=== PATIENT | male | born 1990 | race Two or more races ===

== ENCOUNTER 2018-09-14 06:35 | Emergency (ER) | payer MEDICAID, OTHER ==
[~2018-09-14] VITALS: Ht 172.7 cm; Wt 76.2 kg
[~2018-09-14 06:35] MED LIST: CHEMO
[2018-09-14 07:25] VITALS: BP 141/88
[2018-09-14] MEDS ORDERED: LIDOCAINE 1% HCL (LOCAL ANESTH.) INJ 20ML MDV IJ ONE (08:45)
== END 2018-09-14 08:49 | disposition home or self-care (01) ==
LOC: ER 06:35
DX: S01.81XA Laceration without foreign body of other part of head, initial encounter (principal); S51.011A Laceration without foreign body of right elbow, initial encounter; W18.00XA Striking against unspecified object with subsequent fall, initial encounter; Y93.89 Activity, other specified; Y92.89 Other specified places as the place of occurrence of the external cause; Y99.8 Other external cause status
CPT/HCPCS: 12001; 12013; 99284; J2001

== ENCOUNTER 2021-12-27 17:13 | Emergency (ER) | payer MEDICAID ==
[~2021-12-27] VITALS: Ht 180.3 cm; Wt 86.2 kg
[2021-12-27 17:25] VITALS: BP 128/72
== END 2021-12-27 19:14 | disposition home or self-care (01) ==
LOC: ER 17:13
DX: M54.50 Low back pain, unspecified (principal); M79.18 Myalgia, other site; V43.92XA Unspecified car occupant injured in collision with other type car in traffic accident, initial encounter; Y93.89 Activity, other specified; Y92.89 Other specified places as the place of occurrence of the external cause; Y99.8 Other external cause status

== ENCOUNTER 2024-02-24 11:00 | Emergency (ER) | payer MEDICAID ==
[~2024-02-24] VITALS: Ht 177.8 cm; Wt 95.4 kg
[2024-02-24 11:10] VITALS: PULSE 119; RESP 21; TEMP 98.1; O2SAT 97
[2024-02-24 11:51] LABS: Basophils # (auto) 0.1 10 ^3/uL (0-0.2); Basophils % (auto) 0.8 % (0.0-2.0); Eosinophils # (auto) 0 10 ^3/uL (0-0.8); Eosinophils % (auto) 0.4 % (0.0-7.0); Hematocrit 35.6 % (41.0-53.0); Hemoglobin 12.3 g/dL (13.5-17.5); Lymphocytes # (auto) 2.3 10 ^3/uL (0.4-5.4); Lymphocytes % (auto) 23.7 % (10.0-50.0); Mean Corpuscular Hemoglobin 33.3 pg (28.0-32.0); Mean Corpuscular Hgb Conc. 34.5 g/dL (32.0-36.0); Mean Corpuscular Volume 96.7 fL (80.0-100.0); Monocytes # (auto) 0.7 10 ^3/uL (0-1.3); Neutrophils # (auto) 6.6 10 ^3/uL (1.6-8.6); Neutrophils % (auto) 68.1 % (37.0-80.0); Platelet Count (auto) 345 10^3/uL (140-450); Red Blood Cells 3.68 10^6/uL (4.5-5.90); Red Cell Distribution Width 14.1 % (11.8-14.3); White Blood Cell 9.6 10^3/uL (4.4-10.8)
[2024-02-24] MEDS: SODIUM CHLORIDE 0.9% 1,000 ML IV ONE (12:12)
[2024-02-24 12:27] LABS: Chloride 107 mmol/L (98-107); Potassium 3.7 mmol/L (3.5-5.1); Sodium 141 mmol/L (136-145)
[2024-02-24 12:28] LABS: Anion Gap 9 (5-15); Carbon Dioxide 25 mmol/L (20-30)
[2024-02-24 12:29] LABS: Calcium 9.6 mg/dL (8.7-10.4)
[2024-02-24 12:33] LABS: Glucose 94 mg/dL (74-106)
[2024-02-24 12:34] LABS: BUN/Creatinine Ratio 12.8 (10.0-20.0); Blood Urea Nitrogen 10 mg/dL (9-23)
[2024-02-24 14:35] LABS: Amphetamine Screen, Urine Pos (NEGATIVE); Barbiturate Scree,Urine Neg (NEGATIVE); Benzodiazephine Screen, Urine Neg (NEGATIVE); Cannabinoid Screen, Urine Neg (NEGATIVE); Cocaine Screen, Urine Neg (NEGATIVE); Opiate Scree,Urine Neg (NEGATIVE); Phencyclidine Screen, Urine Neg (NEGATIVE)
[2024-02-24 15:00] VITALS: BP 117/78; PULSE 98; RESP 16; O2SAT 96
== END 2024-02-24 15:55 | disposition left against medical advice (07) ==
LOC: EDBD 11:00 → ER 11:00
DX: F10.129 Alcohol abuse with intoxication, unspecified (principal); F15.90 Other stimulant use, unspecified, uncomplicated; Z79.899 Other long term (current) drug therapy; Y90.0 Blood alcohol level of less than 20 mg/100 ml
CPT/HCPCS: 36415; 80048; 80307; 80320; 85025; 96360; 96361; 99283; J7030